=== PATIENT | female | born 2000 | race Hispanic/Latino ===

== ENCOUNTER 2019-12-18 21:23 | Emergency (ER) | payer OTHER ==
[2019-12-18 22:04] LABS: Urine Blood NEGATIVE (NEG); Urine Glucose NEGATIVE (NEG); Urine Protein NEGATIVE (NEG); Urine Specific Gravity 1.015 (1.005-1.030)
[2019-12-18 22:51] LABS: Absolute Lymphocytes (CBC) 2.8 K/uL (0.7-4.9); Basophils % 0.2 % (0-1.3); Hematocrit 42.1 % (36.0-45.0); MPV 8.3 fL (7.6-11.3); RBC Red Blood Cell Count 4.48 M/uL (3.86-4.86)
[2019-12-18] MEDS ORDERED: MORPHINE 4 MG/ML SYR ONE (22:55)
[2019-12-18] MEDS ORDERED: ONDANSETRON 4 MG/2 ML VIAL ONE (22:55)
[2019-12-18 23:05] LABS: ALT/SGPT 16 U/L (12-78); AST/SGOT 8 U/L (15-37); Albumin 4.3 g/dL (3.4-5.0); Alkaline Phosphatase 70 U/L (45-117); BUN Blood Urea Nitrogen 6 mg/dL (7-18); Bicarbonate 28 mmol/L (21-32); Bilirubin Direct 0.2 mg/dL (0-0.2); Bilirubin Total 0.5 mg/dL (0.2-1.0); Glucose Level 91 mg/dL (74-106); Lipase 180 U/L (73-393); Potassium 3.6 mmol/L (3.5-5.1); Protein, Total 7.2 g/dL (6.4-8.2); Sodium Level 139 mmol/L (136-145)
--- NOTE | 2019-12-19 00:20 | ER ---
Nurse's Notes [facility] Name: Rk Maher Age: 19 yrs Sex: Female : 2000 Arrival Date: 12/18/2019 Time: 21:25 Bed 16 Private MD: Diagnosis: Unspecified abdominal pain Presentation: 12/18 21:28 Presenting complaint: Patient states: Lower abdominal pain for about a year now. I have ca1 an IUD for about 4 years now. I am wondering if it could be the reason, it's just sharp pains that hurts when I cough, during sexual intercourse, and right now I have been having trouble urinating. Denies fever. Reports sporadic spotty vag bleeding and increased vaginal discharge. Transition of care: patient was not received from another setting of care. Onset of symptoms was December 18, 2019. Risk Assessment: Do you want to hurt yourself or someone else? Patient reports no desire to harm self or others. Initial Sepsis Screen: Does the patient meet any 2 criteria? No. Patient's initial sepsis screen is negative. Does the patient have a suspected source of infection? No. Patient's initial sepsis screen is negative. Care prior to arrival: None. 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 - Coronavirus screen:: The patient has NOT traveled to [place] in the past 14 days. The patient has NOT had contact with known/suspected case of Coronavirus?. - Social history:: Smoking status: Patient reports the use of cigarette tobacco products, smokes one-half pack cigarettes per day. - Ebola Screening: : Patient negative for fever greater than or equal to 101.5 degrees Fahrenheit, and additional compatible Ebola Virus Disease symptoms Patient denies exposure to infectious person Patient denies travel to an Ebola-affected area in the 21 days before illness onset No symptoms or risks identified at this time. Screenin:55 Abuse screen: Denies threats or abuse. Nutritional screening: No deficits noted. jb4 Tuberculosis screening: No symptoms or risk factors identified. Fall Risk None identified. Assessment: 22:55 General: Appears in no apparent distress. uncomfortable, Behavior is calm, cooperative, jb4 appropriate for age. Pain: Complains of pain in left lower quadrant Pain does not radiate. Pain currently is 7 out of 10 on a pain scale. Quality of pain is described as burning, Pain began Pain began 1 year ago, Pain began to get worse over the past 4 months. Is continuous. Neuro: Level of Consciousness is awake, alert, obeys commands, Oriented to person, place, time, situation. Cardiovascular: Patient's skin is warm and dry. Respiratory: Airway is patent Respiratory effort is even, unlabored, Respiratory pattern is regular, symmetrical. GI: Abdomen is flat, non-distended, Bowel sounds present X 4 quads. Abd is soft X 4 quads Abdomen is tender to palpation X 4 quads. : No signs and/or symptoms were reported regarding the genitourinary system. EENT: No signs and/or symptoms were reported regarding the EENT system. Derm: Skin is intact, Skin is pink, warm \T\ dry. Musculoskeletal: Circulation, motion, and sensation intact. Range of motion: intact in all extremities. 12/19 00:15 Reassessment: Patient appears in no apparent distress at this time. Patient and/or jb4 family updated on plan of care and expected duration. Pain level reassessed. Patient is alert, oriented x 3, equal unlabored respirations, skin warm/dry/pink. Vital Signs: 12/18 21:32 BP 122 / 81; Pulse 90; Resp 16 S; Temp 98.3(O); Pulse Ox 100% on R/A; Weight 47.63 kg ca1 (R); Height 5 ft. 4 in. (162.56 cm) (R); Pain 7/10; 23:15 BP 107 / 76; Pulse 72; Resp 16; Pulse Ox 100% on R/A; jb4 12/19 00:30 BP 113 / 76; Pulse 84; Resp 16; Pulse Ox 100% on R/A; jb4 12/18 21:32 Body Mass Index 18.02 (47.63 kg, 162.56 cm) ca1 ED Course: 12/18 21:25 Patient arrived in ED. jg7 21:32 Triage completed. ca1 21:32 Arm band placed on right wrist. ca1 22:07 Rafy Madrid NP is PHCP. pm1 22:07 Robert Stewart MD is Attending Physician. pm1 22:08 Kings Vaca, RN is Primary Nurse. jb4 22:29 Inserted saline lock: 22 gauge in left antecubital area, using aseptic technique. Blood mt collected. 22:55 Patient has correct armband on for positive identification. Bed in low position. Call jb4 light in reach. Side rails up X 1. Pulse ox on. NIBP on. 23:33 CT completed. Patient tolerated procedure well. [facility]. [facility] 02 00:30 No provider procedures requiring assistance completed. IV discontinued, intact, jb4 bleeding controlled, No redness/swelling at site. Pressure dressing applied. Administered Medications: 12/18 23:00 Drug: Zofran 4 mg Route: IVP; Site: left forearm; jb4 23:30 Follow up: Response: No adverse reaction; Nausea is decreased jb4 23:02 Drug: morphine 4 mg {Note: Rass score 0.} Route: IVP; Site: left forearm; jb4 23:30 Follow up: Response: No adverse reaction; Pain is decreased; RASS: Alert and Calm (0) jb4 Outcome: 12/19 00:18 Discharge ordered by . pm1 00:30 Discharged to home ambulatory, with family. jb4 00:30 Condition: stable 00:30 Discharge instructions given to patient, family, Instructed on discharge instructions, follow up and referral plans. medication usage, Demonstrated understanding of instructions, follow-up care, medications, Prescriptions given X 1. 00:56 Patient left the ED. jb4 Signatures: Jose Chance Rafy Madrid, SHILO RV DETAILER pm1 Kings Vaca, ROSALVA BLACKWELL jbEricka Duckworth mt, Cheryl, RN RN ca1 María Palacio jg7
--- NOTE | 2019-12-19 00:21 | EDPHYS ---
Physician Documentation [facility] Name: Rk Maher Age: 19 yrs Sex: Female : 2000 Arrival Date: 12/18/2019 Time: 21:25 Bed 16 Private MD: ED Physician Robert Stewart HPI: 12/18 22:08 This 19 yrs old Female presents to ER via Ambulatory with complaints of Abdominal Pain. pm1 22:08 The patient presents with abdominal pain in the lower abdomen. Onset: The pm1 symptoms/episode began/occurred ongoing for 1 year but worse the past three days. The symptoms do not radiate. Associated signs and symptoms: Pertinent positives: burning with urination. pain with intercourse, Pertinent negatives: nausea, vomiting, and diarrhea, chest pain, headache, shortness of breath. The symptoms are described as crampy. Modifying factors: Modifying factors: the symptoms are aggravated by believes it is aggravated by her IUD. Severity of pain: in the emergency department the pain is actually worse. The patient has not recently seen a physician. 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 - Coronavirus screen:: The patient has NOT traveled to [place] in the past 14 days. The patient has NOT had contact with known/suspected case of Coronavirus?. - Social history:: Smoking status: Patient reports the use of cigarette tobacco products, smokes one-half pack cigarettes per day. - Ebola Screening: : Patient negative for fever greater than or equal to 101.5 degrees Fahrenheit, and additional compatible Ebola Virus Disease symptoms Patient denies exposure to infectious person Patient denies travel to an Ebola-affected area in the 21 days before illness onset No symptoms or risks identified at this time. ROS: 22:08 Constitutional: Negative for fever, chills, and weight loss, Eyes: Negative for injury, pm1 pain, redness, and discharge, ENT: Negative for injury, pain, and discharge, Neck: Negative for injury, pain, and swelling, Cardiovascular: Negative for chest pain, palpitations, and edema, Respiratory: Negative for shortness of breath, cough, wheezing, and pleuritic chest pain. 22:08 Back: Negative for injury and pain. 22:08 MS/Extremity: Negative for injury and deformity, Skin: Negative for injury, rash, and discoloration, Neuro: Negative for headache, weakness, numbness, tingling, and seizure. 22:08 Abdomen/GI: Positive for abdominal pain, Negative for nausea, vomiting, and diarrhea, constipation. 22:08 : Positive for burning with urination. Exam: 22:08 Constitutional: This is a well developed, well nourished patient who is awake, alert, pm1 and in no acute distress. Head/Face: Normocephalic, atraumatic. Chest/axilla: Normal chest wall appearance and motion. Nontender with no deformity. No lesions are appreciated. Cardiovascular: Regular rate and rhythm with a normal S1 and S2. No gallops, murmurs, or rubs. Normal PMI, no JVD. No pulse deficits. Respiratory: Lungs have equal breath sounds bilaterally, clear to auscultation and percussion. No rales, rhonchi or wheezes noted. No increased work of breathing, no retractions or nasal flaring. 22:08 Back: No spinal tenderness. No costovertebral tenderness. Full range of motion. Skin: Warm, dry with normal turgor. Normal color with no rashes, no lesions, and no evidence of cellulitis. MS/ Extremity: Pulses equal, no cyanosis. Neurovascular intact. Full, normal range of motion. 22:08 Abdomen/GI: Inspection: abdomen appears normal, Bowel sounds: normal, Palpation: abdomen is soft and non-tender, in all quadrants, mass, is not appreciated, rebound tenderness, is not appreciated. 22:08 Neuro: Orientation: is normal, Motor: is normal, moves all fours. Vital Signs: 21:32 BP 122 / 81; Pulse 90; Resp 16 S; Temp 98.3(O); Pulse Ox 100% on R/A; Weight 47.63 kg ca1 (R); Height 5 ft. 4 in. (162.56 cm) (R); Pain 7/10; 23:15 BP 107 / 76; Pulse 72; Resp 16; Pulse Ox 100% on R/A; jb4 02/12 00:30 BP 113 / 76; Pulse 84; Resp 16; Pulse Ox 100% on R/A; [facility] 12/18 21:32 Body Mass Index 18.02 (47.63 kg, 162.56 cm) ca1 MDM: 12/18 22:07 Patient medically screened. pm1 12/19 00:17 Data reviewed: vital signs. Data interpreted: Pulse oximetry: on room air is 100 %. pm1 Interpretation: normal. Counseling: I had a detailed discussion with the patient and/or guardian regarding: the historical points, exam findings, and any diagnostic results supporting the discharge/admit diagnosis, lab results, radiology results, the need for outpatient follow up, for definitive care, an OB/Gyne specialist, to return to the emergency department if symptoms worsen or persist or if there are any questions or concerns that arise at home. 12/18 21:59 [facility] name[facility] 12/18 21:59 [facility] name: [facility] 12/18 22:08 Order name: Basic Metabolic Panel 12/18 22:08 Order name: CBC with Diff [facility] 12/18 22:08 Order name: Creatinine for Radiology 12/18 22:08 Order name: Hepatic Function [facility] 12/18 22:08 Order name: Lipase 12/18 22:09 Order name: Urine --Ancillary; Complete Time: 22:34 EDVT 12/18 22:09 Order name: Urine Dipstick-Ancillary; Complete Time: 22:34 EDVT 12/18 22:18 Order name: Urine Microscopic Only [facility] 12/18 22:55 Order name: CBC with Automated Diff; Complete Time: 23:06 EDVT 12/18 23:03 Order name: Creatinine (Radiology Only); Complete Time: 23:06 EDVT 12/18 23:06 Order name: Basic Metabolic Panel; Complete Time: 23:08 EDVT 12/18 23:06 Order name: Liver (Hepatic) Function; Complete Time: 23:08 EDVT 12/18 22:08 Order name: IV Saline Lock; Complete Time: 22:30 pm1 12/18 22:08 Order name: Labs collected and sent; Complete Time: 22:30 pm1 12/18 22:18 Order name: CT Abd/Pelvis - IV Contrast Only pm1 12/18 23:06 Order name: Lipase; Complete Time: 23:08 EDMS Administered Medications: 12/18 23:00 Drug: Zofran 4 mg Route: IVP; Site: left forearm; [facility] 23:30 Follow up: Response: No adverse reaction; Nausea is decreased jb 23:02 Drug: morphine 4 mg {Note: Rass score 0.} Route: IVP; Site: left forearm; [facility] 23:30 Follow up: Response: No adverse reaction; Pain is decreased; RASS: Alert and Calm (0) [facility] Disposition: 12/19/19 00:18 Discharged to Home. Impression: Unspecified abdominal pain. - Condition is Stable. - Discharge Instructions: Abdominal Pain, Adult. - Prescriptions for Bentyl 20 mg Oral Tablet - take 1 tablet by ORAL route every 6 hours As needed; 20 tablet. - Medication Reconciliation Form, Thank You Letter, Antibiotic Education, Prescription Opioid Use form. - Follow up: Emergency Department; When: As needed; Reason: Worsening of condition. Follow up: Private Physician; When: 2 - 3 days; Reason: Recheck today's complaints, Continuance of care, Re-evaluation by your physician. - Problem is new. - Symptoms have improved. Addendum: 12/20/2019 08:24 Co-signature as Attending Physician, Robert Stewart MD I agree with the assessment and t w4 plan of care. Signatures: Dispatcher [employer] EDVT Rafy Madrid, PROMOTIONS ASSISTANT SALES MARKETING PROMOTIONS ASSISTANT SALES MARKETING pm1 Kings Vaca RN RN jb4 Robert Stewart MD MD tw4 Corin Gonzales RN RN ca1 Corrections: (The following items were deleted from the chart) 12/19 00:56 00:18 12/19/2019 00:18 Discharged to Home. Impression: Unspecified abdominal pain. jb4 Condition is Stable. Forms are Medication Reconciliation Form, Thank You Letter, Antibiotic Education, Prescription Opioid Use. Follow up: Emergency Department; When: As needed; Reason: Worsening of condition. Follow up: Private Physician; When: 2 - 3 days; Reason: Recheck today's complaints, Continuance of care, Re-evaluation by your physician. Problem is new. Symptoms have improved. pm1
[2019-12-19 00:58] LABS: Urine Bacteria <20 /HPF (<20); Urine Culture Reflex Order NOT NEEDED; Urine RBC NONE SEEN /HPF (NONE SEEN)
--- NOTE | 2019-12-19 10:07 | RAD REPORT ---
EXAM DESCRIPTION: CT - Abdomen Pelvis W Contrast - 12/19/2019 5:18 am COMPARISON: 19-year-old female with abdominal pain. Technologist note: Pelvic pain for about a year. IUD for four years. Pain with coughing and intercourse. COMPARISON: None. TECHNIQUE: CT of the abdomen and pelvis was performed following intravenous administration of contra st. Oral contrast was not administered. Multiplanar reformatted images were provided. This exam was p erformed according to our departmental dose optimization program which includes use of automated expo sure control, adjustment of the mA and/or kV according to patient size and/or use of iterative recons truction technique. FINDINGS: Chest: Evaluation through the lung bases reveals no focal opacity, pleural effusion or pne umothorax. Heart size is within normal limits. No pericardial effusion. Abdomen and pelvis: The liver, gallbladder, pancreas, spleen, bilateral kidneys and bilateral adrenal glands are within normal limits. The vessels are patent and normal in caliber. No abdominopelvic lymph nodes are noted to be pathologically enlarged by CT measurement criteria. The bowel is within normal limits without abnormal bowel wall thickness or bowel dilation. No free air. No free abdominopelvic fluid collections. Limited visualization of what may appear to be the appendix adjacent to the cecum, however incompletely visualized with focus of central luminal ai r measuring up to 5 mm. No pericecal stranding is identified. Overall findings are limited secondary to paucity of intra-abdominal fat and abutment of multiple bowel loops. The uterus appears to be within normal variation of contrast enhancement pattern. The intrauterine de vice is identified situated at the level of the uterine fundus. Free fluid present within the depende nt pelvis, a nonspecific finding which may be physiologic in a patient this age. The osseous structures are within normal limits. IMPRESSION: 1. No specific acute intra-abdominal findings are noted to suggest etiology of the patie nt's abdominal pain. 2. Free fluid present within the dependent pelvis, a nonspecific finding which may be physiologic in a patient this age. Electronically signed by: Josefina Milan MD 12/18/2019 11:49 PM PUBLIC RELATIONS PROFESSIONAL Due to temporary technical issues with the PACS/Fluency reporting system, reports are being signed by the in house radiologist as a courtesy to ensure prompt reporting. The interpreting radiologist is f ully responsible for the content of the report.
[2019-12-20 14:05] VITALS: TEMP 98.3; O2SAT 100
[2019-12-20 14:07] VITALS: BP 113/76
== END 2019-12-19 00:56 | disposition home or self-care (01) ==
LOC: ER 21:23
DX: R10.30 Lower abdominal pain, unspecified (principal); F17.210 Nicotine dependence, cigarettes, uncomplicated
CPT/HCPCS: 85025; 80048; 36415; 81025; 80076; 83690; 74177; 96375; 96374; 99284; Q9967; J2405; 81003; 81015

== ENCOUNTER 2022-01-02 08:54 | Emergency (ER) | payer OTHER, SELFPAY ==
--- OUTSIDE RECORDS SUMMARY | 2022-01-02 08:58 | XMS REPORT | Continuity of Care Document ---
:2000 Author Organization [facility] t Address [address] [place] [address] Care Team Providers Name Role Phone EZEQUIEL Attending Clinician Unavailable Polina Attending Clinician Unavailable EZEQUIEL Admitting Clinician Unavailable Polina Admitting Clinician Unavailable Payers Payer Name Policy Type Policy Number Effective Date Expiration Date S zoe [place] [facility] [id number] HEALTH [employer]GRAM - FAMILY PLANNING [facility] [id number] 2021 [facility] (MEDICAID 00:00:00 O) [place] [facility] - [id number] [facility] - [facility]ADITION[facility] Problems This patient has no known problems. Allergies, Adverse Reactions, Alerts This patient has no known allergies or adverse reactions. Social History Smoking Status Start Date Stop Date Source Current Every Day Smoker [facility] Medications Ordered Filled Start Stop Current Ordering Indication Dosage Frequency Signature Comments Components Source Medication Medication Date Date Medication? Clinician (SIG) Name Name Cathy 14 Cathy 14 No Cathy 14 [place] mcg/24 hrs mcg/24 hrs mcg/24 hrs da (3 yrs) (3 yrs) (3 yrs) Medica l 13.5 mg 13.5 mg 13.5 mg Group intrauterin intrauterin intrauteri e device e device ne device Take by Take by Take by intrauterin intrauterin intrauteri e route. e route. ne route. Sprintec Sprintec No 1 Q1D Sprintec [place] (28) 0.25 (28) 0.25 (28) 0.25 da mg-35 mcg mg-35 mcg mg-35 mcg Medical tablet Take tablet Take tablet Group 1 tablet 1 tablet Take 1 every day every day tablet by oral by oral every day route. route. by oral route. Vital Signs Vital Name Observation Time Observation Value Comments Source BP Diastolic 2020-01-07 00:00:00 61 [facility] Height 2020-01-07 00:00:00 64 [in_i] [facility] BMI (Body Mass 2020-01-07 00:00:00 17.9 kg/m2 [facility] Index) Group BP Systolic 2020-01-07 00:00:00 106 mm[Hg] [facility] Body Weight 2020-01-07 00:00:00 104 [lb_av] [facility] Procedures Procedure Date / Time Performed Performing Clinician [facility] e US, pelvis 2020-01-07 00:00:00 Bridget Herrera Plan of Care Planned Activity Planned Date Details Comments Source Diagnostic Test 2020-01-07 urinalysis, Bridget Christie dical Pending 00:00:00 dipstick [code = Group urinalysis, dipstick] Encounters Start End Encounter Admission Attending Care Care Encounter Source Date/Time Date/Time Type Type Clinicians Facility Department ID 2021-09-18 2021-09-18 Outpatient DICLEMENTE_ STEFANI [facility] [id number] [place] 11:19:00 11:19:00 SHARLENE [facility]z [facility] 2020-01-26 2020-01-26 Outpatient G_Pappas [facility] [id number] [place] 11:13:00 11:13:00 [id number] 2020-01-26 2020-01-26 [id number] [place] 11:13:00 11:13:00 [id number] 2020-01-26 2020-01-26 Outpatient G[facility] 2020 [place] 11:13:00 11:13:00 [id number] [facility] 2020-01-26 2020-01-26 Outpatient G_[facility] 2019 [place] 11:13:00 11:13:00 [id number] [facility] 2020-01-10 2020-01-10 Outpatient G_[facility]appas [facility] 2019 [place] 10:06:00 10:06:00 0305 [facility] 2020-01-08 2020-01-08 Outpatient G_[facility] 2019 [place] 10:35:00 10:35:00 [facility]303 [facility] 2020-01-07 2020-01-07 Outpatient G_[facility] 2019 [place] 05:18:00 05:18:00 [id number] Medical Group 2020-01-07 2020-01-07 Domingo [facility] [place] - [id number] M [facility] 00:00:00 00:00:00 Discovery sabi Farias MD: [address] [address] , Ph. [phone] 2019-12-26 2019-12-26 Outpatient G_Pappas [facility] 2019 [place] 01:10:00 01:10:00 [id number] [facility] 2019-12-26 2019-12-26 Outpatient G_[facility]appas [facility] MM [id number] [place] 01:10:00 01:10:00 [id number] [facility] Results Test Description Test Time Test Comments Results Result Comments Source Urinalysis macro (dipstick) panel - Urine 2020-01-07 15:54:0 0 Test Item Value Reference Range Interpretation Comme nts Leukocytes (test code = Leukocytes) Trace Nitrite (test code = Nitrite) negative Urobilinogen (test code = Urobilinogen) .2 Protein (test code = Protein) Negative pH (test code = pH) 7.0 Blood (test code = Blood) Large Specific [place] (test code = Specific [place]) 1.015 Ketone (test code = Ketone) Negative Bilirubin (test code = Bilirubin) Negative Glucose (test code = Glucose) Negative Appearance (test code = Appearance) Clear Color (test code = Color) Yellow [facility]
[2022-01-02 09:20] LABS: Urine Blood 3+ (Negative); Urine Glucose Negative (Negative); Urine Protein 1+ (Negative); Urine Specific Gravity >=1.030 (1.005-1.030)
[2022-01-02 09:31] LABS: Absolute Lymphocytes (CBC) 2.5 K/uL (0.7-4.9); Hematocrit 39.6 % (36.0-45.0); Lymphocytes % 36.7 % (15.3-44.8); MPV 7.5 fL (7.6-11.3); RBC Red Blood Cell Count 4.28 M/uL (3.86-4.86)
[2022-01-02 10:07] LABS: BUN Blood Urea Nitrogen 7 mg/dL (7-18); Bicarbonate 28 mmol/L (21-32); Glucose Level 91 mg/dL (74-106); HCG, Quantitative 1616 mIU/mL (1-3); Potassium 3.3 mmol/L (3.5-5.1); Sodium Level 136 mmol/L (136-145)
[2022-01-02 10:25] LABS: Urine Bacteria 20-50 /HPF (<20); Urine Mucus 2+ /HPF (NONE SEEN); Urine RBC 20-50 /HPF (NONE SEEN)
--- NOTE | 2022-01-02 10:46 | RAD REPORT ---
EXAM DESCRIPTION: US - 1St Trimest Single 1St Fetus - 01/02/2022 10:36 am CLINICAL HISTORY: VAGINAL BLEEDING COMPARISON: No comparisons FINDINGS: A single gestational sac is seen within the uterus. The shape of the sac is within normal limits for gestational age. The sac is quite small with a sac diameter 5 mm correlating to 5 weeks 2 days gestational age. No yolk sac or embryo components yet identified. The maternal adnexa and left ovary are within normal limits. Normal Doppler blood flow was demonstrat ed to the left ovary. The right ovary is obscured by bowel gas. IMPRESSION: There is a small gestational sac in the uterus measuring about 5 weeks gestational age. This would be compatible with early IUP, however no yolk sac or embryo is detected at this time. Anibal mmend serial HCG levels and follow-up pelvic sonography in 10-12 days.
[2022-01-02 10:54] LABS: Urine Specific Gravity/Preg >1.030 (1.005-1.030)
--- NOTE | 2022-01-02 11:16 | EDPHYS ---
Physician Documentation [facility] Name: Rk Maher Age: 21 yrs Sex: Female : 2000 Arrival Date: 01/02/2022 Time: 08:56 Bed 13 Private MD: ED Physician Gonzalez Reyes HPI: 01/02 09:09 This 21 yrs old Female presents to ER via Ambulatory with complaints of jmm Vaginal Bleeding, + Preg <12wks. 09:09 The patient presents to the emergency department with vaginal bleeding, that is light. jmm The estimated gestational age is 5 weeks. course: care: none, Leakage of Fluid: none appreciated. This is a 21-year-old female with no chronic medical conditions is G4, P2 with 1 that presents emerged department with vaginal bleeding beginning yesterday. Patient denies weakness or fatigue. States she did have a miscarriage during her last .. [employer]: 09:09 4, Living 2 jmm Historical: - Allergies: 09:08 No Known Allergies; ph - PMHx: 09:08 None; ph - PSHx: 09:08 None; ph - Immunization history:: Client reports having NOT received the Covid vaccine. - Social history:: Smoking status: Patient/guardian denies using tobacco, Stopped _ months ago 2. ROS: 09:09 Constitutional: Negative for fever, chills, and weight loss, Cardiovascular: Negative jmm for chest pain, palpitations, and edema, Respiratory: Negative for shortness of breath, cough, wheezing, and pleuritic chest pain. 09:09 : Positive for vaginal bleeding. 09:09 All other systems are negative. Exam: 09:09 Constitutional: This is a well developed, well nourished patient who is awake, alert, jmm and in no acute distress. Head/Face: atraumatic. Eyes: EOMI, no conjunctival erythema appreciated ENT: Moist Mucus Membranes Neck: Trachea midline, Supple Chest/axilla: Normal chest wall appearance and motion. Cardiovascular: Regular rate and rhythm. No edema appreciated Respiratory: Normal respirations, no respiratory distress appreciated Abdomen/GI: Non distended, soft Back: Normal ROM Skin: General appearance color normal MS/ Extremity: Moves all extremities, no obvious deformities appreciated, no edema noted to the lower extremities Neuro: Awake and alert Psych: Behavior is normal, Mood is normal, Patient is cooperative and pleasant Vital Signs: 09:06 BP 127 / 88; Pulse 85; Resp 18; Temp 98.8; Pulse Ox 98% on R/A; Weight 53.52 kg; Height ph 5 ft. 4 in. (162.56 cm); 10:12 BP 105 / 80; Pulse 83; Resp 16; Pulse Ox 100% on R/A; ab2 11:26 BP 112 / 84; Pulse 81; Resp 16; Pulse Ox 100% on R/A; ab2 09:06 Body Mass Index 20.25 (53.52 kg, 162.56 cm) ph MDM: 09:09 Patient medically screened. [facility] 11:14 Data reviewed: vital signs, nurses notes. Counseling: I had a detailed discussion with mirna the patient and/or guardian regarding: the historical points, exam findings, and any diagnostic results supporting the discharge/admit diagnosis, lab results, radiology results, the need for outpatient follow up, to return to the emergency department if symptoms worsen or persist or if there are any questions or concerns that arise at home. ED course: Patient is alert and nontoxic in appearance in the ED. Hemoglobin hematocrit are within normal limits. UA does show some signs of asymptomatic bacteriuria, will treat with oral antibiotics. Patient advised to follow-up with [employer] within 2 to 3 days for repeat quantitative hCG. Patient otherwise given strict return precautions. Patient understood and agrees plan of care.. 01/02 09:11 Order name: Abo/rh Typing [facility] 01/02 09:11 Order name: Basic Metabolic Panel [facility] 01/02 09:11 Order name: Quantitative Hcg [facility] 01/02 09:12 Order name: ABO/RH typing; Complete Time: 10:13 [facility] 01/02 09:12 Order name: Basic Metabolic Panel; Complete Time: 10:13 [facility] 01/02 09:11 Order name: IV Saline Lock; Complete Time: 09:21 [facility] 01/02 09:11 Order name: US 1st Trimest Single 1st Fetus; Complete Time: 10:51 [facility] 01/02 09:12 Order name: CBC with Automated Diff; Complete Time: 10:13 [facility] 01/02 09:12 Order name: HCG, Quantitative; Complete Time: 10:13 [facility] 01/02 09:20 Order name: Urine Dipstick-Ancillary; Complete Time: 10:13 [facility] 01/02 09:26 Order name: Urine --Ancillary (enter results) 01/02 09:35 Order name: Urine Microscopic Only; Complete Time: 10:27 01/02 10:27 Order name: Urine Culture [facility] 01/02 09:11 Order name: Labs collected and sent; Complete Time: 09:21 [facility] 01/02 09:11 Order name: NPO; Complete Time: 09:14 [facility] 01/02 09:11 Order name: Urine Dipstick-Ancillary (obtain specimen); Complete Time: 09:21 [facility] Administered Medications: No medications were administered Disposition: 21:06 Co-signature as Attending Physician, Gonzalez Reyes DO I agree with the assessment and ms3 plan of care. Attestation: The patient's history, exam findings, diagnostics, and a summary of any interventions or procedures was reviewed in detail with Jean Marie ROSE. Disposition Summary: 01/02/22 11:15 Discharge Ordered Location: Home [facility] Condition: Stable [facility] Diagnosis - Threatened [facility] - Asymptomatic bacteriuria [facility] Followup: [facility] - With: Private Physician - When: 2 - 3 days - Reason: Recheck today's complaints, Continuance of care, Repeat Beta-HCG (48 Hours), Re-evaluation by your physician Discharge Instructions: - Discharge Summary Sheet [facility] - Threatened Miscarriage [facility] Forms: - Medication Reconciliation Form [facility] - Thank You Letter [facility] - Antibiotic Education [facility] - Prescription Opioid Use [facility] Prescriptions: - Cephalexin 500 mg Oral Capsule - take 1 capsule by ORAL route every 8 hours for 10 days; 30 capsule; Refills: 0, [facility] Product Selection Permitted Signatures: Dispatcher [employer] Jean Marie Velazquez PA PA jmm Hall, Patricia, RN RN Gonzalez Park DO DO ms3 Corrections: (The following items were deleted from the chart) 10: 09:12 CBC+H.LAB.BRZ ordered. [facility] JENNIFER
--- NOTE | 2022-01-02 11:16 | ER ---
Nurse's Notes [facility] Name: Rk Maher Age: 21 yrs Sex: Female : 2000 Arrival Date: 01/02/2022 Time: 08:56 Bed 13 Private MD: Diagnosis: Threatened ;Asymptomatic bacteriuria Presentation: 01/02 09:06 Chief complaint: Patient states: Vaginal bleeding that started yesterday, states that ph it began as a light brown discharge and became heavier, passed clots this morning, denies cramping, LMP "first part of November" Hx of miscarriage. Coronavirus screen: Vaccine status: Patient reports being unvaccinated. Ebola Screen: No symptoms or risks identified at this time. Initial Sepsis Screen: Does the patient meet any 2 criteria? No. Patient's initial sepsis screen is negative. Does the patient have a suspected source of infection? No. Patient's initial sepsis screen is negative. Risk Assessment: Do you want to hurt yourself or someone else? Patient reports no desire to harm self or others. Onset of symptoms was January 02, 2022. 09:06 Method Of Arrival: Ambulatory ph 09:06 Acuity: BELLA 3 ph Triage Assessment: 09:09 General: Appears in no apparent distress. comfortable, slender, well groomed, Behavior ph is calm, cooperative, appropriate for age. Pain: Denies pain. Neuro: Level of Consciousness is awake, alert, obeys commands, Oriented to person, place, time, situation. Cardiovascular: Capillary refill < 3 seconds in bilateral fingers Patient's skin is warm and dry. Respiratory: Airway is patent Respiratory effort is even, unlabored. : Reports vaginal bleeding that is brown, with clots, light flow, since yesterday. Derm: Skin is intact, is healthy with good turgor, Skin is pink, warm \\T\\ dry. Musculoskeletal: Circulation, motion, and sensation intact. Range of motion: intact in all extremities. [employer]: 09:09 4, Living 2 [facility] Historical: - Allergies: 09:08 No Known Allergies; ph - PMHx: 09:08 None; ph - PSHx: 09:08 None; ph - Immunization history:: Client reports having NOT received the Covid vaccine. - Social history:: Smoking status: Patient/guardian denies using tobacco, Stopped _ months ago 2. Screenin:10 Abuse screen: Denies threats or abuse. Denies injuries from another. Nutritional ph screening: No deficits noted. Tuberculosis screening: No symptoms or risk factors identified. Fall Risk None identified. Assessment: 09:10 General: SEE TRIAGE ASSESSMENT. ph Vital Signs: 09:06 BP 127 / 88; Pulse 85; Resp 18; Temp 98.8; Pulse Ox 98% on R/A; Weight 53.52 kg; Height ph 5 ft. 4 in. (162.56 cm); 10:12 BP 105 / 80; Pulse 83; Resp 16; Pulse Ox 100% on R/A; ab2 11:26 BP 112 / 84; Pulse 81; Resp 16; Pulse Ox 100% on R/A; ab2 09:06 Body Mass Index 20.25 (53.52 kg, 162.56 cm) ph ED Course: 08:56 Patient arrived in ED. 4 09:01 Jean Marie Frazier PA is PHCP. [facility] 09:01 Gonzalez Reyes DO is Attending Physician. jmm 09:08 Triage completed. ph 09:09 Arm band placed on Patient placed in an exam room, on a stretcher. ph 09:10 Patient has correct armband on for positive identification. Bed in low position. Call ph light in reach. Side rails up X 1. Pulse ox on. NIBP on. Door closed. Noise minimized. Warm blanket given. 09:20 Initial lab(s) drawn, by ne, sent to lab. T\\T\\S collected, blood band applied to patient. dh3 Inserted saline lock: 20 gauge in right antecubital area, using aseptic technique. Blood collected. 09:21 Denisse Newman, RN is Primary Nurse. ss 10:22 Abo/rh Typing Sent. ab2 10:22 Basic Metabolic Panel Sent. ab2 10:22 Quantitative Hcg Sent. ab2 10:36 US 1st Trimest Single 1st Fetus In Process Unspecified. EDMS 11:26 No provider procedures requiring assistance completed. IV discontinued, intact, ab2 bleeding controlled, No redness/swelling at site. Pressure dressing applied. Administered Medications: No medications were administered Outcome: 11:15 Discharge ordered by . jmm 11:27 Discharged to home ambulatory, with significant other. ab2 11:27 Condition: good 11:27 Discharge instructions given to patient, significant other, Instructed on discharge instructions, follow up and referral plans. medication usage, Demonstrated understanding of instructions, follow-up care, medications, Prescriptions given X 1. 11:27 Patient left the ED. ab2 Signatures: Dispatcher [employer] EDMS Jean Marie Frazier PA PA jmm Smirch, Shelby, Sierra Loyd RN, RN RN ph Garcia, Rubi 4 Sammie Aldridge 3 Mario Marquis2
[2022-01-02 11:45] VITALS: TEMP 98.8
[2022-01-02 11:47] VITALS: O2SAT 100
[2022-01-02 11:48] VITALS: BP 112/84
== END 2022-01-02 11:27 | disposition home or self-care (01) ==
LOC: ER 08:54
DX: O20.0 Threatened abortion (principal); O23.91 Unspecified genitourinary tract infection in pregnancy, first trimester; N39.0 Urinary tract infection, site not specified; Z3A.01 Less than 8 weeks gestation of pregnancy
CPT/HCPCS: 36415; 76801; 80048; 81003; 81015; 81025; 84702; 85025; 86900; 86901; 87086; 87088; 99284

== ENCOUNTER 2022-01-05 23:04 | Emergency (ER) | payer OTHER ==
--- OUTSIDE RECORDS SUMMARY | 2022-01-05 23:11 | XMS REPORT | Continuity of Care Document ---
:2000 Author Organization [facility] t Address [address] [place] [address] Care Team Providers Name Role Phone EZEQUIEL Attending Clinician Unavailable London_Dinora Attending Clinician Unavailable EZEQUIEL Admitting Clinician Unavailable Polina Admitting Clinician Unavailable Payers Payer Name Policy Type Policy Number Effective Date Expiration Date S zoe [place] [facility] [id number] HEALTH [employer] - FAMILY PLANNING [facility] [id number] 2021 [facility] (MEDICAID 00:00:[id number] O) [place] [facility] - [id number] [facility] Problems This patient has no [...] Source BP Diastolic 2020-01-07 00:00:00 61 mm[Hg] [facility] Height 2020-01-07 00:00:00 64 [in_i] [facility] BMI (Body Mass 2020-01-07 00:00:00 17.9 kg/m2 [facility] Medical Index) Group BP Systolic 2020-01-07 00:00:00 106 mm[Hg] [facility] Body Weight 2020-01-07 00:00:00 104 [lb_av] [facility] Procedures Procedure Date / Time Performed Performing Clinician [facility] e US, pelvis 2020-01-07 00:00:00 Bridget hernandez Group Plan of Care Planned Activity Planned Date Details Comments Source Diagnostic Test 2020-01-07 urinalysis, Bridget Christie dical Pending 00:00:00 dipstick [code = Group urinalysis, dipstick] Encounters Start End Encounter Admission Attending Care Care Encounter Source Date/Time Date/Time Type Type Clinicians Facility Department ID 2021-09-18 2021-09-18 Outpatient DICLEMENTE_ [facility] [id number] 11:19:00 11:19:00 SHARLENE Montez da [facility] h Program 2020-01-26 2020-01-26 Outpatient G_[facility]appas [facility] [id number] [place] 11:13:00 11:13:00 [id number] [facility] 2020-01-26 2020-01-26 Outpatient G_Pappas [facility] [address] 11:13:00 11:13:00 [id number] [facility] 2020-01-26 2020-01-26 Outpatient G_Pappas [facility] [address] 11:13:00 11:13:00 0909 [facility] 2020-01-26 2020-01-26 Outpatient G_Pappas [facility] [address] 11:13:00 11:13:00 0521 [facility] 2020-01-10 2020-01-10 Outpatient G_[facility]as [facility] [address] [place] 10:06:00 10:06:00 0305 [facility] 2020-01-08 2020-01-08 Outpatient G_Pappas [facility] [address] [place] 10:35:00 10:35:00 0303 [facility] 2020-01-07 2020-01-07 Outpatient G_Pappas [facility] [address] [place] 05:18:00 05:18:00 0302 Medical Group 2020-01-07 2020-01-07 Domingo [facility] [place] - [id number] [place] [address] 00:00:00 00:00:00 Discovery sabi Farias MD: [address] [address] , Ph. [phone] 2019-12-26 2019-12-26 Outpatient [facility] [address] [place] 01:10:00 01:10:00 [id number] Medical Group 2019-12-26 2019-12-26 Outpatient G_Pappas [facility] 2019 [place] 01:10:00 01:10:00 [id number] Medical Group Results Test Description Test Time [...] Blood (test code = Blood) Large Specific Baldwin (test code = Specific Baldwin) 1.015 Ketone (test code = Ketone) Negative Bilirubin (test code = Bilirubin) Negative Glucose (test code = Glucose) Negative Appearance (test code = Appearance) Clear Color (test code = Color) Yellow [facility]
[2022-01-06 00:20] LABS: Absolute Lymphocytes (CBC) 1.8 K/uL (0.7-4.9); Hematocrit 38.4 % (36.0-45.0); Lymphocytes % 37.2 % (15.3-44.8); RBC Red Blood Cell Count 4.19 M/uL (3.86-4.86)
--- NOTE | 2022-01-06 00:54 | ER ---
Nurse's Notes [facility] Name: Rk Maher Age: 21 yrs Sex: Female : 2000 Arrival Date: 01/05/2022 Time: 23:07 Bed 13 Private MD: Diagnosis: Complete or unspecified spontaneous without complication Presentation: 01/05 23:58 Chief complaint: Patient states: 21yo HF present with c/o progressively worsening ss7 vaginal bleeding. Seen here 01/01/2022 for same complaint that has worsened. Said to be 5 weeks . . Coronavirus screen: Vaccine status: Patient reports being unvaccinated. Ebola Screen: No symptoms or risks identified at this time. Initial Sepsis Screen: Does the patient meet any 2 criteria? No. Patient's initial sepsis screen is negative. Does the patient have a suspected source of infection? No. Patient's initial sepsis screen is negative. Risk Assessment: Do you want to hurt yourself or someone else? Patient reports no desire to harm self or others. Onset of symptoms was January 01, 2022. 23:58 Method Of Arrival: Ambulatory [facility] 23:58 Acuity: BELLA 3 ss7 Triage Assessment: 01/06 00:01 General: Appears in no apparent distress. comfortable, Behavior is calm, cooperative, ss7 appropriate for age. GI: No deficits noted. : Reports vaginal bleeding that is bright red, with clots, heavy flow. [employer]: 00:00 4, Full Term 2, Living 2 ss7 Historical: - Allergies: 00:00 No Known Allergies; ss7 - Home Meds: 00:00 None [Active]; ss7 - PMHx: 00:00 None; ss7 - PSHx: 00:00 None; ss7 - Immunization history:: Client reports having NOT received the Covid vaccine. Flu vaccine is not up to date. - Social history:: Smoking status: Patient reports the use of cigarette tobacco products, denies chronic smoking, but will smoke occasionally. - Family history:: not pertinent. - Hospitalizations: : No recent hospitalization is reported. Screenin:01 Abuse screen: Denies threats or abuse. Nutritional screening: No deficits noted. ss7 Tuberculosis screening: No symptoms or risk factors identified. Fall Risk None identified. Assessment: 00:09 Obstetrical Assessment: General assessment: awake and alert, skin warm and dry. tk1 General: Appears comfortable, well groomed, well developed, well nourished, Behavior is calm, cooperative, appropriate for age. Pain: Complains of pain in abdomen Pain does not radiate. Pain currently is 4 out of 10 on a pain scale. Quality of pain is described as crampy, Pain began 2-3 days ago. Neuro: No deficits noted. Level of Consciousness is awake, alert, obeys commands, Oriented to person, place, time, situation, Appropriate for age Minute Clerk are equal bilaterally Moves all extremities. Gait is steady. Cardiovascular: Capillary refill < 3 seconds is brisk in bilateral fingers Clubbing of nail beds is absent JVD is absent. Respiratory: Airway is patent Trachea midline Respiratory effort is even, unlabored, Respiratory pattern is regular, symmetrical. GI: No deficits noted. No signs and/or symptoms were reported involving the gastrointestinal system. : Reports vaginal bleeding that is with clots. EENT: No deficits noted. No signs and/or symptoms were reported regarding the EENT system. Derm: No deficits noted. No signs and/or symptoms reported regarding the dermatologic system. Musculoskeletal: No deficits noted. No signs and/or symptoms reported regarding the musculoskeletal system. 01:13 Reassessment: D/C per MD order. Discharge instructions given to patient. Verbalized tk1 understanding. Vital Signs: 01/05 23:18 BP 107 / 65; Pulse 95; Resp 16; Temp 98.2; Pulse Ox 100% ; lt3 01/06 00:09 BP 113 / 69 LA Supine (auto/reg); Pulse 75 MON; Resp 18 S; Temp 98.1(O); Pulse Ox 100% tk1 on R/A; Pain 3/10; 01:13 BP 117 / 72 LA Supine (auto/reg); Pulse 82 MON; Resp 16; Temp 98.3(O); Pulse Ox 100% on tk1 R/A; Pain 2/10; ED Course: 01/05 23:07 Patient arrived in ED. es 23:09 Jonathan Núñez MD is Attending Physician. rn 23:33 Tasha Davenport is Primary Nurse. tk1 01/06 00:00 Triage completed. ss7 00:00 Arm band placed on. ss7 00:01 Patient has correct armband on for positive identification. Bed in low position. Call ss7 light in reach. 00:01 No provider procedures requiring assistance completed. ss7 00:07 HCG-Quantitative Sent. tk1 00:07 CBC with Diff Sent. tk1 00:08 Inserted saline lock: 20 gauge in right antecubital area, using aseptic technique. tk1 Blood collected. 00:09 Pulse ox on. NIBP on. tk1 00:10 US Transvaginal Ob In Process Unspecified. EDMS 01:13 IV discontinued, intact, bleeding controlled, No redness/swelling at site. Pressure tk1 dressing applied. Administered Medications: No medications were administered Outcome: 00:53 Discharge ordered by . rn 01:13 Discharged to home ambulatory. tk1 01:13 Condition: stable 01:13 Discharge instructions given to patient, Instructed on discharge instructions, follow up and referral plans. Demonstrated understanding of instructions, follow-up care. 01:15 Patient left the ED. tk1 Signatures: Dispatcher [employer] EDMS Anne Gaming Roman, MD MD rn Tran, Leah Tasha Porter tk1 Ester Acosta RN RN ss7
--- NOTE | 2022-01-06 00:54 | EDPHYS ---
Physician Documentation [facility] Name: Rk Maher Age: 21 yrs Sex: Female : 2000 Arrival Date: 01/05/2022 Time: 23:07 Bed 13 Private MD: ED Physician Jonathan Núñez HPI: 01/05 23:18 This 21 yrs old Female presents to ER via Unassigned with complaints of rn Vaginal Bleeding, + Preg <12wks. 23:18 The patient presents to the emergency department with vaginal bleeding, that is rn moderate, with clots. The estimated gestational age is 5 weeks. course: care: private OB physician, Leakage of Fluid: none appreciated, Ultrasound: the patient had an ultrasound, Risk/complications:. Previous pregnancies: in previous pregnancies patient has had. The patient has experienced a previous episode. The patient has been recently seen at the [facility] Emergency Department. at approx 5-6 weeks presents with continued vaginal bleeding. Seen here recently 5 days ago, told threatened , no trauma, reports still bleeding about the same with clots. No sob or lightheaded. Unable to get with her private OB. No abd pain.. 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 Flu vaccine is not up to date. - Social history:: Smoking status: Patient reports the use of cigarette tobacco products, denies chronic smoking, but will smoke occasionally. - Family history:: not pertinent. - Hospitalizations: : No recent hospitalization is reported. ROS: 01/05 23:18 Constitutional: Negative for fever, chills, and weight loss, Eyes: Negative for injury, rn pain, redness, and discharge, Neck: Negative for injury, pain, and swelling, Cardiovascular: Negative for chest pain, palpitations, and edema, Respiratory: Negative for shortness of breath, cough, wheezing, and pleuritic chest pain, Abdomen/GI: + vaginal bleeding Back: Negative for injury and pain, : Negative for injury, bleeding, discharge, and swelling, MS/Extremity: Negative for injury and deformity, Skin: Negative for injury, rash, and discoloration, Neuro: Negative for headache, weakness, numbness, tingling, and seizure. Exam: 23:18 Constitutional: This is a well developed, well nourished patient who is awake, alert, rn and in no acute distress. Ambulatory to room without difficulty or assistance. Head/Face: Normocephalic, atraumatic. Eyes: Periorbital areas with no swelling, redness, or edema. Cardiovascular: Regular rate and rhythm. No pulse deficits. Respiratory: No increased work of breathing, no retractions or nasal flaring. Abdomen/GI: soft, non-tender Skin: Warm, dry MS/ Extremity: Pulses equal, no cyanosis. Neuro: Awake and alert, GCS 15 Vital Signs: 23:18 BP 107 / 65; Pulse 95; Resp 16; Temp 98.2; Pulse Ox 100% ; lt3 01/06 00:09 BP 113 / 69 LA Supine (auto/reg); Pulse 75 MON; Resp 18 S; Temp 98.1(O); Pulse Ox 100% tk1 on R/A; Pain 3/10; 01:13 BP 117 / 72 LA Supine (auto/reg); Pulse 82 MON; Resp 16; Temp 98.3(O); Pulse Ox 100% on tk1 R/A; Pain 2/10; MDM: 01/05 23:09 Patient medically screened. rn 01/06 00:26 ED course: U/S tech states gestational sac measuring smaller, still no lab rn activity, likely miscarriage, but still waiting on hcg. H/H normal, vitals stable, Rh +. Anticipate dc home with OB f/u.. 00:50 Differential diagnosis: Data reviewed: vital signs, nurses notes, lab test result(s), rn radiologic studies, ultrasound, and as a result, I will discharge patient. Counseling: I had a detailed discussion with the patient and/or guardian regarding: the historical points, exam findings, and any diagnostic results supporting the discharge/admit diagnosis, lab results, radiology results, the need for outpatient follow up, to return to the emergency department if symptoms worsen or persist or if there are any questions or concerns that arise at home. Special discussion: I discussed with the patient/guardian in detail that at this point there is no indication for admission to the hospital. It is understood, however, that if the symptoms persist or worsen the patient needs to return immediately for re-evaluation. Based on the history and exam findings, there is no indication for further emergent testing or inpatient evaluation. I discussed with the patient/guardian the need to see the OB Gyne specialist for further evaluation of the symptoms. ED course: HCG decreased, likely inevitable , will dc home with conservative management and OB f/u.. 01:02 ED course: Offered pt cytotec, states last able to pass without medication and rn would like to try the same again. Urged to f/u with OB.. 01/05 23:13 Order name: CBC with Diff; Complete Time: 00:25 rn 01/05 23:13 Order name: HCG-Quantitative; Complete Time: 00:50 rn 01/05 23:08 Order name: US Transvaginal Ob rn 01/05 23:13 Order name: IV Start; Complete Time: 00:07 rn Administered Medications: No medications were administered Disposition Summary: 01/06/22 00:53 Discharge Ordered Location: Home rn Problem: new rn Symptoms: are unchanged rn Condition: Stable rn Diagnosis - Complete or unspecified spontaneous without complication rn Followup: rn - With: Private Physician - When: 1 - 2 days - Reason: Recheck today's complaints, Re-evaluation by your physician Discharge Instructions: - Discharge Summary Sheet rn - Miscarriage rn Forms: - Medication Reconciliation Form rn - Thank You Letter rn - Antibiotic creative intern - Prescription Opioid Use rn Signatures: Dispatcher [employer] EDJonathan Alfaro MD MD rn Smith, Shana, RN RN ss7
[2022-01-06 01:24] VITALS: O2SAT 100
[2022-01-06 01:27] VITALS: BP 117/72; TEMP 98.3
--- NOTE | 2022-01-06 07:48 | RAD REPORT ---
EXAM DESCRIPTION: US - Transvaginal OB - 01/06/2022 12:11 am CLINICAL HISTORY: Abd cramping, ;Vaginal bleeding COMPARISON: 1St Trimest Single 1St Fetus dated 01/02/2022 FINDINGS: Tiny sac-like structure within the endometrial canal with measuring 3 millimeters which, if a gestational sac, would be consistent with 46 days. The left ovary measures 2 x 1 x 1.2 cm with v olume of 1.3 mL . Blood flow is present. The right ovary was not visualized. IMPRESSION: Possible gestational sac though the mean sac diameter has decreased in size since 2021. This is suspicious but not confirmatory for a failed first trimester . Recommend corre lation with serial beta HCG and repeat ultrasound in 1-2 weeks.
== END 2022-01-06 01:15 | disposition home or self-care (01) ==
LOC: ER 23:04
DX: O03.9 Complete or unspecified spontaneous abortion without complication (principal); O99.331 Smoking (tobacco) complicating pregnancy, first trimester; F17.210 Nicotine dependence, cigarettes, uncomplicated; Z3A.01 Less than 8 weeks gestation of pregnancy
CPT/HCPCS: 36415; 76817; 84702; 85025; 99284